=== PATIENT | male | born 1975 | race Caucasian/White ===

== ENCOUNTER 2016-09-16 16:11 | Emergency (ER) | payer SELFPAY ==
[2016-09-16] MEDS ORDERED: Eye-Stream Solution ONE (16:35)
[2016-09-16] MEDS ORDERED: Fluor-I-Strip/Ful-Flo OP ONE ×2 (16:35→16:55)
[2016-09-16] MEDS ORDERED: TETRACAINE 0.5% STERI-UNIT SOL OP ONE (16:35)
[2016-09-16] MEDS ORDERED: Eye-Stream Solution OP ONE (16:55)
[2016-09-16] MEDS ORDERED: Erythromycin 3.5 GM OPHTH. OP ONE (16:56)
[2016-09-16] MEDS ORDERED: TETRACAINE 0.5% STERI-UNIT SOL OP STA (16:57)
[2016-09-16] MEDS ORDERED: Erythromycin 1 GM ONE (17:00)
[2016-09-16 17:15] VITALS: BP 111/74; PULSE 77
[2016-09-16 17:18] VITALS: O2SAT 98
--- NOTE | 2016-09-16 17:19 | ERPHSYRPT ---
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 STATES HE SUSTAINED POSSIBLE FOREIGN BODY TO HIS RIGHT WORKING BELOW CAR 1 WEEK AGO, AND STATES HIS RIGHT EYE LASHES HAVE BEEN MATTED X 1 WEEK. HE DENIES EYE PAIN, EYE IRRITATION OR TEARING. Timing/Duration: day(s) Location: right eye Severity: mild Apparent Injury: possibly Associated Symptoms: redness, foreign body sensation Visual Assistive Devices: None Chemical Exposure: No Trauma: No Welding Arc/Tanning Bed Exposure: No Allergies/Adverse Reactions: Shellfish *RETIRED-10/21/12 [Shellfish] Allergy (Intermediate, Verified 16:22) Home Medications: Albuterol Sulfate [Proventil Hfa] 6.7 gm IH Q4-6HPRN PRN 09/16/16 [History] Hx Tetanus, Diphtheria Vaccination/Date Given: No Hx Influenza Vaccination/Date Given: No Hx Pneumococcal Vaccination/Date Given: No Immunizations Up to Date: Yes - Review of Systems Constitutional: No Fever, No Chills Eyes: Itchy Ears, Nose, & Throat: No Symptoms Respiratory: No Symptoms, No Cough, No Dyspnea Cardiac: No Symptoms, No Chest Pain, No Edema, No Syncope Abdominal/Gastrointestinal: No Abdominal Pain, No Nausea, No Vomiting, No Diarrhea Genitourinary Symptoms: No Dysuria Musculoskeletal: No Back Pain, No Neck Pain Skin: No Rash Neurological: No Dizziness, No Focal Weakness, No Sensory Changes Psychological: No Symptoms Endocrine: No Symptoms All Other Systems: Reviewed and Negative - Past Medical History Pertinent Past Medical History: Yes Neurological History: No Pertinent History ENT History: No Pertinent History Cardiac History: No Pertinent History Respiratory History: Asthma Endocrine Medical History: No Pertinent History Musculoskeletal History: No Pertinent History GI Medical History: No Pertinent History History: No Pertinent History Psycho-Social History: No Pertinent History Male Reproductive Disorders: No Pertinent History - Past Surgical History Past Surgical History: No Neuro Surgical History: No Pertinent History Cardiac: No Pertinent History Respiratory: No Pertinent History Gastrointestinal: No Pertinent History Genitourinary: No Pertinent History Musculoskeletal: No Pertinent History Male Surgical History: No Pertinent History - Social History Smoking Status: Never smoker Exposure to second hand smoke: No Drug Use: none Patient Lives Alone: No - Nursing Vital Signs Nursing Vital Signs: Initial Vital Signs Temperature 98.3 F Temperature Source Oral Pulse Rate 83 Respiratory Rate 22 Pain Intensity 2 - Physical Exam General Appearance: no apparent distress Vision Acuity Degree Evaluation Phase: Uncorrected Vision Acuity Right Eye: 20/20 Vision Acuity Left Eye: 20/20 Eye Exam: right eye: conjunctival inflammation (CHEMOSIS 5MM X 5MM), other, bilateral eye: PERRL, EOMI Ears, Nose, Throat Exam: normal ENT inspection Neck Exam: normal inspection Respiratory Exam: normal breath sounds Cardiovascular Exam: regular rate/rhythm SpO2: 98 Oxygen Delivery: Room Air Ordered Tests: Active Orders 24 hr Category Date Time Status Visual Acuity STAT Care 09/16/16 16:55 Active Medication Summary Discontinued Medications Generic Name Dose Route Start Last Admin Trade Name Freq PRN Reason Stop Dose Admin Erythromycin 3.5 gm 09/16/16 16:56 09/16/16 17:04 Erythromycin 3.5 Gm Ophth. OP 09/16/16 16:57 3.5 gm STAT ONE Administration Erythromycin Confirm 09/16/16 17:00 Erythromycin 1 Gm Administered 09/16/16 17:01 Dose 1 gm .ROUTE .STK-MED ONE Eye Irrigation Solution Confirm 09/16/16 16:35 Eye-Stream Solution Administered 09/16/16 16:36 Dose 30 ml .ROUTE .STK-MED ONE Eye Irrigation Solution 15 ml 09/16/16 16:55 09/16/16 16:59 Eye-Stream Solution OP 09/16/16 16:56 15 ml STAT ONE Administration Fluorescein Sodium Confirm 09/16/16 16:35 Gfsie-H-Gwjrs/Ful-Ned Administered 09/16/16 16:36 Dose 1 mg OP .STK-MED ONE Fluorescein Sodium 1 mg 09/16/16 16:55 09/16/16 16:59 Wtozz-U-Uwjsp/Ful-Ned OP 09/16/16 16:56 1 mg STAT ONE Administration Tetracaine HCl Confirm 09/16/16 16:35 Tetracaine 0.5% Steri-Unit Armida Administered 09/16/16 16:36 Dose 4 ml OP .STK-MED ONE Tetracaine HCl 4 ml 09/16/16 16:57 09/16/16 16:59 Tetracaine 0.5% Steri-Unit Armida OP 09/16/16 16:58 4 ml STAT STA Administration - Progress Progress Note: 09/16/16 17:20 TETRCAINE OPHTH 3GTTS OD, EVERSION UPPER EYE LID WITH COTTON SWAB, NO EVIDENCE OF FOREIGH BODY,FLURO STRIP- NEG, EYE IRRIGATION, APPLICATION 1/2" RIBBON ERYTHROMYCIN OPHTHALMIC OINTMENT Counseled pt/family regarding: diagnosis, need for follow-up - Departure Time of Disposition: 17:30 Departure Disposition: Home Clinical Impression: CORNEAL ABRASION RIGHT EYE, CONJUNCTIVITIS RIGHT EYE Condition: Stable Critical Care Time: No Additional Instructions: CONSULT DR LYLES EYE PHYSICIAN, CALL OFFICE TOMORROW FOR APPOINTMENT. APPLY ERYTHROMYCIN OPHTHALMIC OINTMENT INTO RIGHT EYE 4 TIMES DAILY FOR 7 DAYS. TYLENOL #3 EVERY 4 HOURS FOR PAIN NEEDED. CLEANSE HANDS BEFORE AND AFTER APPLICATION OF ANTIBIOTIC OINTMENT. Prescriptions: Codeine Phosphate/APAP #3 [Tylenol #3 Tablet] 1 tab PO Q4HPRN PRN #12 tablet PRN Reason: Pain Erythromycin Base 3.5 gm [Erythromycin 3.5 GM OPHTH.] 3.5 gm OP QID #2 tube
== END 2016-09-16 17:39 | disposition home or self-care (01) ==
LOC: ED 16:11
DX: S05.01XA Injury of conjunctiva and corneal abrasion without foreign body, right eye, initial encounter (principal); H10.89 Other conjunctivitis
CPT/HCPCS: 99283; A9270-GY

== ENCOUNTER 2018-02-12 10:01 | Emergency (ER) | payer SELFPAY ==
[2018-02-12 10:10] VITALS: O2SAT 98
--- NOTE | 2018-02-12 10:20 | ERPHSYRPT ---
- History of Present Illness Time Seen by Provider: 02/12/18 10:18 Source: patient, family Exam Limitations: no limitations Patient Subjective Stated Complaint: Pt states "I cut my finger with a razor." Triage Nursing Assessment: Pt alert and oriented X 3, skin pwd. PT ambulates with an upright steady gait, able to speak in clear full sentences. Pt has approx 1 cm laceration noted to the tip of the left middle finger, slightly going through the nail. 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 he tetanus is utd. Timing/Duration: today Quality: painful Severity: mild Location: hands (left middle finger) Possible Causes: other (accidental cut with a steam box operator.) Associated Symptoms: denies symptoms Allergies/Adverse Reactions: Shellfish *RETIRED-10/21/12 [Shellfish] Allergy (Intermediate, Verified 16:22) Home Medications: Esomeprazole Magnesium [Nexium] 20 mg PO DAILY 02/12/18 [History] Loratadine [Claritin] 10 mg PO DAILY 02/12/18 [History] Hx Tetanus, Diphtheria Vaccination/Date Given: Yes Hx Influenza Vaccination/Date Given: No Hx Pneumococcal Vaccination/Date Given: No Immunizations Up to Date: Yes - Review of Systems Constitutional: No Symptoms Eyes: No Symptoms Ears, Nose, & Throat: No Symptoms Respiratory: No Symptoms Cardiac: No Symptoms Abdominal/Gastrointestinal: No Symptoms Genitourinary Symptoms: No Symptoms Musculoskeletal: No Symptoms Skin: Other (laceration to left middle fingertip) Neurological: No Symptoms, No Dizziness Psychological: No Symptoms, No Alcohol Abuse, No Drug Abuse, No Anxiety Endocrine: No Symptoms, No Polyuria, No Polydipsia Hematologic/Lymphatic: No Symptoms Immunological/Allergic: No Symptoms All Other Systems: Reviewed and Negative - Past Medical History Pertinent Past Medical History: Yes Neurological History: No Pertinent History ENT History: No Pertinent History Cardiac History: No Pertinent History Respiratory History: Asthma Endocrine Medical History: No Pertinent History Musculoskeletal History: No Pertinent History GI Medical History: No Pertinent History History: No Pertinent History Psycho-Social History: No Pertinent History Male Reproductive Disorders: No Pertinent History - Past Surgical History Past Surgical History: No Neuro Surgical History: No Pertinent History Cardiac: No Pertinent History Respiratory: No Pertinent History Gastrointestinal: No Pertinent History Genitourinary: No Pertinent History Musculoskeletal: No Pertinent History Male Surgical History: No Pertinent History - Social History Smoking Status: Former smoker Exposure to second hand smoke: No Drug Use: none Patient Lives Alone: No - Nursing Vital Signs Nursing Vital Signs: Initial Vital Signs Temperature 98.0 F 02/12/18 10:05 Pulse Rate 78 02/12/18 10:05 Respiratory Rate 18 02/12/18 10:05 Blood Pressure 159/100 02/12/18 10:05 O2 Sat by Pulse Oximetry 98 02/12/18 10:05 Pain Scale Pain Intensity 5 - Physical Exam General Appearance: no apparent distress, alert Eye Exam: PERRL/EOMI, eyes nml inspection Ears, Nose, Throat Exam: normal ENT inspection Neck Exam: normal inspection, non-tender, supple, full range of motion, No meningismus Respiratory Exam: normal breath sounds, lungs clear, airway intact, rhonchi, wheezing, No chest tenderness, No respiratory distress Cardiovascular Exam: regular rate/rhythm, normal heart sounds, normal peripheral pulses Gastrointestinal/Abdomen Exam: soft, normal bowel sounds, No tenderness, No guarding, No rebound Rectal Exam: not done Back Exam: normal inspection, normal range of motion Extremity Exam: normal inspection, normal range of motion, lacerations (1cm superficial flap lac with tip of fingernail laceration) Neurologic Exam: alert, oriented x 3, cooperative, instructional support technician II-XII nml as tested, normal mood/affect Skin Exam: normal color, warm, dry, laceration Lymphatic Exam: No adenopathy SpO2 Interpretation: normal SpO2: 98 Oxygen Delivery: Room Air Procedures - Laceration/Wound Repair Left Finger Wound Location: Left (middle finger tip) Wound Length (cm): 1 Wound's Depth, Shape: superficial, flap Wound Explored: clean Irrigated: No Hibiclens Prep: Yes Wound Debrided: minimal Wound Repaired With: Steri-strips, Dermabond Sterile Dressing Applied?: Yes Progress: 02/12/18 11:31 area of left middle finger soaked in hibiclens solution. area of laceration dried. tip of lacerated fingernail debrided sharply. benzoin, dermabond and 1/2 " steristrips applied. pressure dressing applied by RN. marcus ross. no complications - Course Nursing assessment & vital signs reviewed: Yes Ordered Tests: Active Orders 24 hr Category Date Time Status Wound Care STAT Care 02/12/18 11:21 Ordered - Progress Progress: improved Counseled pt/family regarding: diagnosis, need for follow-up - Departure Time of Disposition: 11:34 Departure Disposition: Home Clinical Impression: Laceration of finger Condition: Stable Critical Care Time: No Referrals: CHAD MEHTA MD [Primary Care Provider] - Additional Instructions: Keep current dressing in place until Friday. Friday may remove top bandage, wash and leave steristrips in place until they fall off.
[2018-02-12 11:48] VITALS: BP 148/99; PULSE 72
== END 2018-02-12 11:48 | disposition home or self-care (01) ==
LOC: ED 10:01
PROC: 0HQGXZZ Repair Left Hand Skin, External Approach (ICD-10-PCS; principal; 2018-02-12)
DX: S61.213A Laceration without foreign body of left middle finger without damage to nail, initial encounter (principal); W26.0XXA Contact with knife, initial encounter
CPT/HCPCS: 12001; 99283

== ENCOUNTER 2020-02-24 17:08 | Observation (INO) | payer BC ==
[2020-02-24] MEDS ORDERED: Sodium Chloride 0.9% 1000 ML 1,000 ML IV STA (17:48)
--- NOTE | 2020-02-24 17:55 | ERPHSYRPT ---
- History of Present Illness Time Seen by Provider: 02/24/20 18:00 Historian: patient Physician History: Patient is a 44-year-old male who presents to our ED with complaints of progressive right lower quadrant/periumbilical pain. Pain started yesterday. Pain described as a dull ache. Pain appears to be localized. No radiation. Patient admits to diarrhea. No nausea or vomiting. No testicular pain. No trauma. No fever. No chest pain or shortness of breath. Symptoms are mild to moderate in intensity. No specific worsening or improving factors. Patient states he is otherwise healthy. Patient voices no other complaints at this time. Patient declined pain medication. Timing/Duration: yesterday Activities at Onset: none Quality: aching Abdominal Pain Onset Location: RLQ, periumbilical Pain Radiation: no radiation Severity of Pain-Max: moderate Severity of Pain-Current: mild Modifying Factors: Improves With: palpation Associated Symptoms: diarrhea, No chest pain, No diaphoresis, No fever/chills, No fatigue, No headache, No heartburn, No loss of appetite, No nausea, No neck pain, No rash, No shortness of breath, No syncope, No testicular pain, No vomiting, No weakness Previous symptoms: no prior history Allergies/Adverse Reactions: Shellfish *RETIRED-10/21/12 [Shellfish] Allergy (Intermediate, Verified 09/16/16 16:22) Home Medications: Esomeprazole Magnesium [Nexium] 20 mg PO DAILY 02/12/18 [History] Loratadine [Claritin] 10 mg PO DAILY 02/12/18 [History] Albuterol 17 gm IH DAILY 02/24/20 [History] Fluticasone/Salmeterol [Advair 100-50 Diskus] 1 unit IH DAILY 02/24/20 [History] Meloxicam [Mobic] 15 mg PO DAILY 02/24/20 [History] Hx Tetanus, Diphtheria Vaccination/Date Given: Yes Hx Influenza Vaccination/Date Given: No Hx Pneumococcal Vaccination/Date Given: No - Review of Systems Constitutional: No Symptoms, No Fever, No Chills Eyes: No Symptoms Ears, Nose, & Throat: No Symptoms Respiratory: No Symptoms, No Cough, No Dyspnea Cardiac: No Symptoms, No Chest Pain, No Edema, No Syncope Abdominal/Gastrointestinal: No Symptoms, No Abdominal Pain, No Nausea, No Vomiting, No Diarrhea Genitourinary Symptoms: No Symptoms, No Dysuria Musculoskeletal: No Symptoms, No Back Pain, No Neck Pain Skin: No Symptoms, No Rash Neurological: No Symptoms, No Dizziness, No Focal Weakness, No Sensory Changes Psychological: No Symptoms Endocrine: No Symptoms Hematologic/Lymphatic: No Symptoms Immunological/Allergic: No Symptoms All Other Systems: Reviewed and Negative - Past Medical History Pertinent Past Medical History: Yes Neurological History: No Pertinent History ENT History: No Pertinent History Cardiac History: No Pertinent History Respiratory History: Asthma Endocrine Medical History: No Pertinent History Musculoskeletal History: No Pertinent History GI Medical History: No Pertinent History History: No Pertinent History Psycho-Social History: No Pertinent History Male Reproductive Disorders: No Pertinent History - Past Surgical History Past Surgical History: No Neuro Surgical History: No Pertinent History Cardiac: No Pertinent History Respiratory: No Pertinent History Gastrointestinal: No Pertinent History Genitourinary: No Pertinent History Musculoskeletal: No Pertinent History Male Surgical History: No Pertinent History - Social History Smoking Status: Former smoker Exposure to second hand smoke: No Drug Use: none Patient Lives Alone: No - Nursing Vital Signs Nursing Vital Signs: Initial Vital Signs Temperature 98.5 F 02/24/20 17:55 Pulse Rate 93 H 02/24/20 17:55 Respiratory Rate 20 02/24/20 17:55 Blood Pressure 157/92 02/24/20 17:55 O2 Sat by Pulse Oximetry 95 02/24/20 17:55 Pain Scale Pain Intensity 9 - Physical Exam General Appearance: no apparent distress, alert Eye Exam: PERRL/EOMI, eyes nml inspection Ears, Nose, Throat Exam: normal ENT inspection, pharynx normal, moist mucous membranes Neck Exam: normal inspection, non-tender, supple, full range of motion Respiratory Exam: normal breath sounds, lungs clear, No respiratory distress Cardiovascular Exam: regular rate/rhythm, normal heart sounds Gastrointestinal/Abdomen Exam: soft, tenderness, guarding, other (Tenderness to palpation to right lower quadrant at McBurney's point. Overlying soft tissue intact. No signs of trauma.), No mass Back Exam: normal inspection, normal range of motion, No CVA tenderness, No vertebral tenderness Extremity Exam: normal inspection, normal range of motion, pelvis stable Neurologic Exam: alert, oriented x 3, cooperative, normal mood/affect, nml cerebellar function, sensation nml, No motor deficits Skin Exam: normal color, warm, dry Lymphatic Exam: No adenopathy SpO2 Interpretation: normal SpO2: 98 O2 Delivery: Room Air - Course Nursing assessment & vital signs reviewed: Yes - CT Exams Abdomen/Pelvis CT Interpretation: Tele-radiologist Report (Scattered diverticulosis sigmoid diverticulitis, small hiatal hernia, hepatomegaly, splenomegaly) Ordered Tests: Active Orders 24 hr Category Date Time Status EKG-ER Only STAT Care 02/24/20 17:48 Active IV Insertion STAT Care 02/24/20 17:48 Active ABDOMEN AND PELVIS W CONTRAST [CT] Stat Exams 02/24/20 17:49 Taken CBC W DIFF Stat Lab 02/24/20 18:00 Completed CMP Stat Lab 02/24/20 18:00 Completed LIPASE Stat Lab 02/24/20 18:00 Completed Transfer Order Routine Transfer 02/24/20 Ordered Medication Summary Generic Name Dose Route Start Last Admin Trade Name Freq PRN Reason Stop Dose Admin Piperacillin Sod/Tazobactam 100 mls @ 200 mls/hr 02/24/20 20:35 02/24/20 20:46 Sod 3.375 gm/ Sodium Chloride IV 02/24/20 21:04 200 mls/hr STAT ONE Administration Discontinued Medications Generic Name Dose Route Start Last Admin Trade Name Freq PRN Reason Stop Dose Admin Sodium Chloride 1,000 mls @ 999 mls/hr 02/24/20 17:48 02/24/20 19:42 Sodium Chloride 0.9% 1000 Ml IV 02/24/20 18:48 Infused .Q1H1M STA Infusion Sodium Chloride Confirm 02/24/20 18:34 Sodium Chloride 0.9% 1000 Ml Administered 02/24/20 18:35 Dose 1,000 mls @ ud .ROUTE .STK-MED ONE Sodium Chloride Confirm 02/24/20 20:39 Sodium Chloride 0.9% 100 Ml Ivpb Administered 02/24/20 20:40 Dose 100 mls @ ud IV .STK-MED ONE Morphine Sulfate 4 mg 02/24/20 20:37 02/24/20 20:47 Morphine Sulfate 4 Mg Inj IV 02/24/20 20:38 4 mg STAT ONE Administration Morphine Sulfate Confirm 02/24/20 20:39 Morphine Sulfate 4 Mg Inj Administered 02/24/20 20:40 Dose 4 mg .ROUTE .STK-MED ONE Piperacillin Sod/Tazobactam Sod Confirm 02/24/20 20:39 Zosyn 3.375 Gm Vial Administered 02/24/20 20:40 Dose 3.375 gm IV .STK-MED ONE Lab/Rad Data: Laboratory Result Diagrams 02/24/20 18:00 02/24/20 18:00 Laboratory Results 02/24/20 02/24/20 Range/Units 18:00 18:00 WBC 13.0 H (4.0-10.5) K/mm3 RBC 4.92 (4.1-5.6) M/mm3 Hgb 14.7 (12.5-18.0) gm/dl Hct 44.2 (42-50) % MCV 89.8 (78-100) fl MCH 29.9 (26-32) pg MCHC 33.3 (32-36) g/dl RDW 12.7 (11.5-14.0) % Plt Count 258 (150-450) K/mm3 MPV 10.6 (7.5-11.0) fl Gran % 73.2 H (36.0-66.0) % Eos # (Auto) 0.52 H (0-0.5) Absolute Lymphs (auto) 1.84 (1.0-4.6) Absolute Monos (auto) 1.09 (0.0-1.3) Lymphocytes % 14.2 L (24.0-44.0) % Monocytes % 8.4 (0.0-12.0) % Eosinophils % 4.0 (0.00-5.0) % Basophils % 0.2 (0.0-0.4) % Absolute Granulocytes 9.52 H (1.4-6.9) Basophils # 0.03 (0-0.4) Sodium 137 (137-145) mmol/L Potassium 4.1 (3.5-5.1) mmol/L Chloride 105 (98-107) mmol/L Carbon Dioxide 26 (22-30) mmol/L Anion Gap 10.5 (5-15) MEQ/L BUN 15 (9-20) mg/dL Creatinine 0.76 (0.66-1.25) mg/dL Estimated GFR > 60.0 ML/MIN Glucose 99 (74-106) mg/dL Calcium 9.5 (8.4-10.2) mg/dL Total Bilirubin 0.70 (0.2-1.3) mg/dL AST 27 (17-59) U/L ALT 26 (0-50) U/L Alkaline Phosphatase 66 (38-126) U/L Serum Total Protein 7.6 (6.3-8.2) g/dL Albumin 4.4 (3.5-5.0) g/dL Lipase 118 (23-300) U/L - Progress Progress: improved Progress Note: 02/24/20 20:51 Patient reassessed. Pain improved. Patient requested Toradol for pain control. He declined morphine as this apparently causes prolonged sleeping and difficulty awakening. CT shows diverticulitis of sigmoid colon. We will change patient's diet to clear liquid only. Antibiotics infused. Case discussed with Dr. Schofield who accepts admission to observation. Plan of care discussed with patient. He agrees to admission to [facility] for further evaluation and treatment. Discussed with : Ivan Will see patient in: hospital (observation) Counseled pt/family regarding: lab results, diagnosis, need for follow-up, rad results - Departure Departure Disposition: Observation Clinical Impression: Diverticulitis, Hiatal hernia, Hepatomegaly, Splenomegaly Condition: Stable Critical Care Time: No Referrals: CHAD MEHTA MD [ACTIVE STAFF] -
[2020-02-24 18:26] LABS: Absolute Neutrophil Ct (ANC) 9.52 (1.4-6.9); BASOPHIL % 0.2 % (0.0-0.4); Basophil (Absolute #) 0.03 (0-0.4); Eosinophil (Absolute #) 0.52 (0-0.5); Hematocrit 44.2 % (42-50); Hemoglobin 14.7 gm/dl (12.5-18.0); Lymphocyte (Absolute #) 1.84 (1.0-4.6); Lymphocytes % 14.2 % (24.0-44.0); Mean Cell Volume 89.8 fl (78-100); Mean Corpuscular Hemoglobin 29.9 pg (26-32); Mean Corpuscular Hgb Concent. 33.3 g/dl (32-36); Mean Platelet Volume 10.6 fl (7.5-11.0); Monocyte (Absolute #) 1.09 (0.0-1.3); Monocytes % 8.4 % (0.0-12.0); Neutrophil % 73.2 % (36.0-66.0); Platelet Count 258 K/mm3 (150-450); Red Blood Count 4.92 M/mm3 (4.1-5.6); Red Cell Distribution Width 12.7 % (11.5-14.0)
[2020-02-24] MEDS ORDERED: Sodium Chloride 0.9% 1000 ML 1,000 ML ONE (18:34)
[2020-02-24 18:40] LABS: ALBUMIN 4.4 g/dL (3.5-5.0); ALKALINE PHOSPHATASE 66 U/L (38-126); ANION GAP 10.5 MEQ/L (5-15); BLOOD UREA NITROGEN 15 mg/dL (9-20); CHLORIDE 105 mmol/L (98-107); Calcium 9.5 mg/dL (8.4-10.2); Carbon Dioxide 26 mmol/L (22-30); Creatinine 1 0.76 mg/dL (0.66-1.25); EST GLOMERULAR FILTRATION RATE > 60.0 ML/MIN; Glucose 99 mg/dL (74-106); LIPASE 118 U/L (23-300); Potassium 4.1 mmol/L (3.5-5.1); SGOT/AST 27 U/L (17-59); SGPT/ALT 26 U/L (0-50); SODIUM 137 mmol/L (137-145); Total Protein 7.6 g/dL (6.3-8.2)
[2020-02-24] MEDS ORDERED: Zosyn 3.375 GM Vial 3.375 GM in Sodium Chloride 100ML MINI-BAG PLUS 100 ML IV ONE (20:35)
[2020-02-24] MEDS ORDERED: MORPHINE SULFATE 4 MG INJ IV ONE (20:37)
[2020-02-24] MEDS ORDERED: Sodium Chloride 0.9% 100 ML IVPB 100 ML IV ONE (20:39)
[2020-02-24] MEDS ORDERED: MORPHINE SULFATE 4 MG INJ ONE (20:39)
[2020-02-24] MEDS ORDERED: Zosyn 3.375 GM Vial IV ONE (20:39)
[2020-02-24] MEDS ORDERED: TORAdol 30 mg Injection IV ONE (20:57)
[2020-02-24] MEDS ORDERED: TORAdol 30 mg Injection ONE (20:58)
[2020-02-24] MEDS ORDERED: MORPHINE SULFATE 4 MG INJ IV PRN (21:20)
[2020-02-24] MEDS ORDERED: Zofran 4 MG/2 ML VIAL IV PRN (21:20)
[2020-02-24] MEDS: Sodium Chloride 0.9% 1000 ML 1,000 ML IV SCH (22:15)
[2020-02-24] MEDS ORDERED: Protonix 20MG Tablet PO ONE (22:21)
[2020-02-24] MEDS ORDERED: MELOXICAM PO ONE (22:21)
[2020-02-24] MEDS ORDERED: CLARITIN 10 MG ONE (22:21)
[2020-02-24] MEDS: CLARITIN 10 MG PO SCH (22:24)
[2020-02-24] MEDS: Protonix 20MG Tablet PO SCH (22:25)
[2020-02-25] MEDS: TORAdol 30 mg Injection IV PRN ×2 (05:26→18:07)
[2020-02-25 05:47] LABS: Absolute Neutrophil Ct (ANC) 6.22 (1.4-6.9); BASOPHIL % 0.3 % (0.0-0.4); Basophil (Absolute #) 0.03 (0-0.4); Hematocrit 42.6 % (42-50); Hemoglobin 13.9 gm/dl (12.5-18.0); Lymphocyte (Absolute #) 2.22 (1.0-4.6); Mean Cell Volume 90.4 fl (78-100); Mean Corpuscular Hemoglobin 29.5 pg (26-32); Mean Corpuscular Hgb Concent. 32.6 g/dl (32-36); Mean Platelet Volume 10.4 fl (7.5-11.0); Monocyte (Absolute #) 1.11 (0.0-1.3); Neutrophil % 61.7 % (36.0-66.0); Platelet Count 214 K/mm3 (150-450); Red Blood Count 4.71 M/mm3 (4.1-5.6); Red Cell Distribution Width 12.7 % (11.5-14.0); White Blood Count 10.1 K/mm3 (4.0-10.5)
[2020-02-25 06:10] LABS: ALBUMIN 3.8 g/dL (3.5-5.0); ALKALINE PHOSPHATASE 56 U/L (38-126); ANION GAP 8.2 MEQ/L (5-15); BLOOD UREA NITROGEN 12 mg/dL (9-20); CHLORIDE 106 mmol/L (98-107); Calcium 9.1 mg/dL (8.4-10.2); Carbon Dioxide 27 mmol/L (22-30); Creatinine 1 0.82 mg/dL (0.66-1.25); EST GLOMERULAR FILTRATION RATE > 60.0 ML/MIN; Glucose 101 mg/dL (74-106); Potassium 4.1 mmol/L (3.5-5.1); SGOT/AST 24 U/L (17-59); SGPT/ALT 22 U/L (0-50); SODIUM 137 mmol/L (137-145); Total Protein 6.7 g/dL (6.3-8.2)
[2020-02-25] MEDS: Sodium Chloride 0.9% 1000 ML 1,000 ML IV SCH ×2 (08:24→23:25)
--- NOTE | 2020-02-25 08:35 | PCM.HP ---
History of Present Illness - Chief Complaint Chief Complaint: Diverticulitis Date: 02/25/20 History of Present Illness: is a 44 year old male. Presented to ER with worsening of mid abdominal pain since day before yesterday, pt. notes pain under control only by iv pain medication at this time. - Review of Systems Constitutional: No Fever, No Chills Eyes: No Symptoms Ears, Nose, & Throat: No Symptoms Respiratory: No Cough, No Short Of Breath Cardiac: No Chest Pain, No Edema, No Syncope Abdominal/Gastrointestinal: Abdominal Pain, No Nausea, No Vomiting, No Diarrhea Genitourinary Symptoms: No Dysuria Musculoskeletal: No Back Pain, No Neck Pain Skin: No Rash Neurological: No Dizziness, No Focal Weakness, No Sensory Changes Psychological: No Symptoms Endocrine: No Symptoms Hematologic/Lymphatic: No Symptoms Immunological/Allergic: No Symptoms Medications & Allergies Home Medications: Home Medication List Esomeprazole Magnesium [Nexium] 20 mg PO HS 02/12/18 [History Confirmed 02/24/20] Loratadine [Claritin] 10 mg PO HS 02/12/18 [History Confirmed 02/24/20] Albuterol 17 gm IH DAILY 02/24/20 [History Confirmed 02/24/20] Fluticasone/Salmeterol [Advair 100-50 Diskus] 1 unit IH DAILY 02/24/20 [History Confirmed 02/24/20] Meloxicam [Mobic] 15 mg PO HS 02/24/20 [History Confirmed 02/24/20] Allergies/Adverse Reactions: Allergies Allergy/AdvReac Type Severity Reaction Status Date / Time Shellfish *RETIRED-10/21/12 Allergy Intermediate Verified 09/16/16 16:22 [Shellfish] morphine AdvReac Intermediate Verified 02/24/20 20:53 - Past Medical History Past Medical History: Yes Neurological History: No Pertinent History ENT History: No Pertinent History Cardiac History: No Pertinent History Respiratory History: Asthma Endocrine Medical History: No Pertinent History Musculoskelatal History: No Pertinent History GI Medical History: No Pertinent History History: No Pertinent History Pyscho-Social History: No Pertinent History Male Reproductive Disorders: No Pertinent History - Past Surgical History Past Surgical History: No Neuro Surgical History: No Pertinent History Cardiac History: No Pertinent History Respiratory Surgery: No Pertinent History GI Surgical History: No Pertinent History Genitourinary Surgical Hx: No Pertinent History Musculskeletal Surgical Hx: No Pertinent History Male Surgical History: No Pertinent History - Social History Smoking Status: Former smoker Exposure to second hand smoke: No Alcohol: Occasionally Drug Use: none - Physical Exam Vital Signs: Vital Signs - 24 hr Temp Pulse Resp BP Pulse Ox 02/25/20 06:59 98.1 F 73 20 113/64 95 02/25/20 04:00 98.4 F 76 18 130/79 96 02/25/20 00:11 74 18 94 L 02/24/20 21:30 98.9 F 88 16 136/85 98 02/24/20 21:20 88 16 97 02/24/20 21:10 89 134/84 97 02/24/20 20:54 98 02/24/20 20:00 84 18 131/78 97 02/24/20 19:17 84 18 118/71 97 02/24/20 18:49 87 20 97 02/24/20 17:55 98.5 F 93 H 20 157/92 95 General Appearance: no apparent distress, alert Neurologic Exam: alert, oriented x 3, cooperative, normal mood/affect, nml cerebellar function, nml station & gait, sensation nml, No motor deficits Eye Exam: PERRL/EOMI, eyes nml inspection Ears, Nose, Throat Exam: normal ENT inspection, TMs normal, pharynx normal, moist mucous membranes Neck Exam: normal inspection, non-tender, supple, full range of motion Respiratory Exam: normal breath sounds, lungs clear, No respiratory distress Cardiovascular Exam: regular rate/rhythm, normal heart sounds, normal peripheral pulses Gastrointestinal/Abdomen Exam: soft, normal bowel sounds, tenderness (midline abdomen), No mass Back Exam: normal inspection, normal range of motion, No CVA tenderness, No ve rtebral tenderness Extremity Exam: normal inspection, normal range of motion, pelvis stable Skin Exam: normal color, warm, dry, No rash Lymphatic Exam: No adenopathy Results - Labs Lab/Micro Results: Lab Results-Last 24 Hours 02/24/20 02/24/20 02/25/20 Range/Units 18:00 18:00 05:39 WBC 13.0 H 10.1 (4.0-10.5) K/mm3 RBC 4.92 4.71 (4.1-5.6) M/mm3 Hgb 14.7 13.9 (12.5-18.0) gm/dl Hct 44.2 42.6 (42-50) % MCV 89.8 90.4 (78-100) fl MCH 29.9 29.5 (26-32) pg MCHC 33.3 32.6 (32-36) g/dl RDW 12.7 12.7 (11.5-14.0) % Plt Count 258 214 (150-450) K/mm3 MPV 10.6 10.4 (7.5-11.0) fl Gran % 73.2 H 61.7 (36.0-66.0) % Eos # (Auto) 0.52 H 0.50 (0-0.5) Absolute Lymphs (auto) 1.84 2.22 (1.0-4.6) Absolute Monos (auto) 1.09 1.11 (0.0-1.3) Lymphocytes % 14.2 L 22.0 L (24.0-44.0) % Monocytes % 8.4 11.0 (0.0-12.0) % Eosinophils % 4.0 5.0 (0.00-5.0) % Basophils % 0.2 0.3 (0.0-0.4) % Absolute Granulocytes 9.52 H 6.22 (1.4-6.9) Basophils # 0.03 0.03 (0-0.4) Sodium 137 (137-145) mmol/L Potassium 4.1 (3.5-5.1) mmol/L Chloride 105 (98-107) mmol/L Carbon Dioxide 26 (22-30) mmol/L Anion Gap 10.5 (5-15) MEQ/L BUN 15 (9-20) mg/dL Creatinine 0.76 (0.66-1.25) mg/dL Estimated GFR > 60.0 ML/MIN Glucose 99 (74-106) mg/dL Calcium 9.5 (8.4-10.2) mg/dL Total Bilirubin 0.70 (0.2-1.3) mg/dL AST 27 (17-59) U/L ALT 26 (0-50) U/L Alkaline Phosphatase 66 (38-126) U/L Serum Total Protein 7.6 (6.3-8.2) g/dL Albumin 4.4 (3.5-5.0) g/dL Lipase 118 (23-300) U/L 02/25/20 Range/Units 05:39 WBC (4.0-10.5) K/mm3 RBC (4.1-5.6) M/mm3 Hgb (12.5-18.0) gm/dl Hct (42-50) % MCV (78-100) fl MCH (26-32) pg MCHC (32-36) g/dl RDW (11.5-14.0) % Plt Count (150-450) K/mm3 MPV (7.5-11.0) fl Gran % (36.0-66.0) % Eos # (Auto) (0-0.5) Absolute Lymphs (auto) (1.0-4.6) Absolute Monos (auto) (0.0-1.3) Lymphocytes % (24.0-44.0) % Monocytes % (0.0-12.0) % Eosinophils % (0.00-5.0) % Basophils % (0.0-0.4) % Absolute Granulocytes (1.4-6.9) Basophils # (0-0.4) Sodium 137 (137-145) mmol/L Potassium 4.1 (3.5-5.1) mmol/L Chloride 106 (98-107) mmol/L Carbon Dioxide 27 (22-30) mmol/L Anion Gap 8.2 (5-15) MEQ/L BUN 12 (9-20) mg/dL Creatinine 0.82 (0.66-1.25) mg/dL Estimated GFR > 60.0 ML/MIN Glucose 101 (74-106) mg/dL Calcium 9.1 (8.4-10.2) mg/dL Total Bilirubin 0.90 (0.2-1.3) mg/dL AST 24 (17-59) U/L ALT 22 (0-50) U/L Alkaline Phosphatase 56 (38-126) U/L Serum Total Protein 6.7 (6.3-8.2) g/dL Albumin 3.8 (3.5-5.0) g/dL Lipase (23-300) U/L - Radiology Impressions Radiology Exams & Impressions: Radiology Procedures Category Date Time Status ABDOMEN AND PELVIS W CONTRAST [CT] Stat Exams 02/24/20 17:49 Taken - Other Procedures and Tests Respiratory Therapy 02/24/20 22:23 Respiratory Therapy Assessment DAILY Assessment/Plan (1) Diverticulitis Current Visit: Yes Status: Acute Assessment & Plan: iv antibiotic zosyn and iv pain medication, observe for the day Code(s): K57.92 - DVTRCLI OF INTEST, PART UNSP, W/O PERF OR ABSCESS W/O BLEED
--- NOTE | 2020-02-25 09:32 | XRAY ---
Indication: Abdomen pain and diarrhea. Multiple contiguous axial images obtained through the abdomen and pelvis using 80 cc Isovue 370 contrast only. Comparison: None Lung bases demonstrates minimal lingular subsegmental atelectasis/scarring. No infiltrate or effusion. Heart is not enlarged. Small hiatal hernia. Noncontrasted stomach and bowel loops appear nonobstructed. Normal air-filled appendix. Mild scattered radiopacity throughout the colon presumed ingested medication/bismuth. Also scattered colonic diverticulosis. Mid sigmoid colon demonstrate mild wall thickening with mild pericolonic stranding favoring diverticulitis. No free fluid/air. Liver is enlarged measuring 21.4 cm. Spleen is also enlarged measuring 13.5 cm. Remaining liver, gallbladder, pancreas, spleen, adrenal glands, kidneys, ureters, bladder, and aorta appear unremarkable. No pathologic retroperitoneal lymphadenopathy. Osseous structures intact with mild degenerative changes throughout the spine. Small fatty bilateral inguinal hernias. Impression: 1. Scattered colonic diverticulosis with mild sigmoid diverticulitis. No complications. 2. Incidental small hiatal hernia, hepatosplenomegaly, and small fatty bilateral inguinal hernias.
[2020-02-25] MEDS ORDERED: SALMETEROL IH SCH (10:00)
[2020-02-25] MEDS ORDERED: FLUTICASONE IH SCH (10:00)
[2020-02-25] MEDS ORDERED: NON-FORMULARY ITEM (Albuterol [Albuterol] 17 GM) IH SCH (10:00)
[2020-02-25] MEDS ORDERED: ADVAIR HFA 45/21 COMMON CANISTER IH SCH ×2 (10:00→19:56)
[2020-02-25] MEDS ORDERED: VENTOLIN COMMON CANISTER IH SCH (10:00)
[2020-02-25] MEDS: Zosyn 3.375 GM Vial 3.375 GM in Sodium Chloride 100ML MINI-BAG PLUS 100 ML IV SCH ×3 (10:40→23:34)
[2020-02-25] MEDS: PATIENT OWN MEDICATION IH SCH (19:50)
[2020-02-25] MEDS: CLARITIN 10 MG PO SCH (21:21)
[2020-02-25] MEDS: Protonix 20MG Tablet PO SCH (21:22)
[2020-02-25] MEDS ORDERED: MELOXICAM PO SCH (22:00)
[2020-02-25] MEDS ORDERED: NON-FORMULARY ITEM (Meloxicam [Mobic] 15 MG) PO SCH (22:00)
[2020-02-25] MEDS ORDERED: NON-FORMULARY ITEM PO ONE (22:30)
[2020-02-26 05:39] LABS: Hematocrit 41.3 % (42-50); Hemoglobin 13.4 gm/dl (12.5-18.0); Mean Cell Volume 90.4 fl (78-100); Mean Corpuscular Hemoglobin 29.3 pg (26-32); Mean Corpuscular Hgb Concent. 32.4 g/dl (32-36); Mean Platelet Volume 10.4 fl (7.5-11.0); Platelet Count 223 K/mm3 (150-450); Red Blood Count 4.57 M/mm3 (4.1-5.6); Red Cell Distribution Width 12.5 % (11.5-14.0); White Blood Count 7.2 K/mm3 (4.0-10.5)
[2020-02-26] MEDS: Zosyn 3.375 GM Vial 3.375 GM in Sodium Chloride 100ML MINI-BAG PLUS 100 ML IV SCH ×2 (05:45→10:37)
[2020-02-26 05:54] LABS: ALBUMIN 3.7 g/dL (3.5-5.0); ALKALINE PHOSPHATASE 54 U/L (38-126); ANION GAP 8.5 MEQ/L (5-15); BLOOD UREA NITROGEN 7 mg/dL (9-20); CHLORIDE 109 mmol/L (98-107); Carbon Dioxide 26 mmol/L (22-30); Creatinine 1 0.85 mg/dL (0.66-1.25); EST GLOMERULAR FILTRATION RATE > 60.0 ML/MIN; Glucose 94 mg/dL (74-106); Potassium 3.8 mmol/L (3.5-5.1); SGOT/AST 21 U/L (17-59); SGPT/ALT 20 U/L (0-50); SODIUM 139 mmol/L (137-145); Total Protein 6.8 g/dL (6.3-8.2)
[2020-02-26] MEDS: PATIENT OWN MEDICATION IH SCH (07:25)
[2020-02-26] MEDS: Sodium Chloride 0.9% 1000 ML 1,000 ML IV SCH (10:41)
--- NOTE | 2020-02-26 11:53 | PCM.DS ---
Discharge Summary Date of Admission: 02/24/20 21:14 Admitting Physician: DENNIS MCIHAUD Primary Care Provider: RAFFAELE LEAVITT NP Allergies Allergies Shellfish *RETIRED-10/21/12 [Shellfish] Allergy (Intermediate, Verified 09/16/16 16:22) morphine Adverse Reaction (Intermediate, Verified 02/24/20 20:53) Trouble waking up Hospital Summary - Hospital Course Hospital Course: Chief Complaint Diagnosis Diverticulitis Admission Date Date 02/25/20 Allergies Allergy/AdvReac Type Severity Reaction Status Date / Time Shellfish *RETIRED-10/21/12 Allergy Intermediate Verified 09/16/16 16:22 [Shellfish] morphine AdvReac Intermediate Verified 02/24/20 20:53 Vital Signs (Last 24 hours) Temp Pulse Resp BP Pulse Ox 02/26/20 08:00 97.8 F 59 L 15 134/86 97 02/26/20 07:26 78 18 97 02/26/20 04:00 98.1 F 81 18 137/65 96 02/25/20 23:37 98.8 F 74 18 128/73 95 02/25/20 21:41 80 16 97 02/25/20 19:48 98.5 F 80 18 141/89 97 02/25/20 16:00 98.9 F 78 16 136/83 95 Home Medications Medication Instructions Recorded Confirmed Last Taken Type Albuterol 17 gm IH DAILY 02/24/20 02/24/20 Unknown History Fluticasone/Salmeterol [Advair 1 unit IH DAILY 02/24/20 02/24/20 Unknown History 100-50 Diskus] Meloxicam [Mobic] 15 mg PO HS 02/24/20 02/24/20 Unknown History Current Medications Generic Name Dose Route Start Last Admin Trade Name Freq PRN Reason Stop Dose Admin Albuterol Sulfate 2 puff 02/25/20 10:00 Ventolin Common Canister IH 03/26/20 09:59 DAILY LEODAN Sodium Chloride 1,000 mls @ 100 mls/hr 02/24/20 21:20 02/26/20 10:41 Sodium Chloride 0.9% 1000 Ml IV 03/25/20 21:19 100 mls/hr .Q10H LEODAN Administration Piperacillin Sod/Tazobactam 100 mls @ 200 mls/hr 02/25/20 12:00 02/26/20 10:37 Sod 3.375 gm/ Sodium Chloride IV 03/26/20 11:59 200 mls/hr Q6HT LEODAN Administration Ketorolac Tromethamine 30 mg 02/24/20 21:24 02/25/20 18:07 Toradol 30 Mg Injection IV 02/29/20 21:23 30 mg Q8HPRN PRN Administration PAIN Loratadine 10 mg 02/25/20 22:00 02/25/20 21:21 Claritin 10 Mg PO 03/26/20 21:59 10 mg HS LEODAN Administration Meloxicam 15 mg 02/25/20 22:00 02/25/20 21:22 Meloxicam PO 03/26/20 21:59 15 mg HS LEODAN Administration Morphine Sulfate 4 mg 02/24/20 21:20 Morphine Sulfate 4 Mg Inj IV 02/29/20 21:19 Q4H PRN PRN PAIN Ondansetron HCl 4 mg 02/24/20 21:20 Zofran 4 Mg/2 Ml Vial IV 03/25/20 21:19 Q6H PRN PRN NAUSEA/VOMITING Pantoprazole Sodium 20 mg 02/25/20 22:00 02/25/20 21:22 Protonix 20mg Tablet PO 03/26/20 21:59 20 mg HS LEODAN Administration Advair 45/21 Inhaler 2 each 02/25/20 19:00 02/26/20 07:25 IH 03/26/20 18:59 2 each BIDRT LEODAN Administration Discontinued Medications Generic Name Dose Route Start Last Admin Trade Name Freq PRN Reason Stop Dose Admin Sodium Chloride 1,000 mls @ 999 mls/hr 02/24/20 17:48 02/24/20 19:42 Sodium Chloride 0.9% 1000 Ml IV 02/24/20 18:48 Infused .Q1H1M STA Infusion Sodium Chloride Confirm 02/24/20 18:34 Sodium Chloride 0.9% 1000 Ml Administered 02/24/20 18:35 Dose 1,000 mls @ ud .ROUTE .STK-MED ONE Piperacillin Sod/Tazobactam 100 mls @ 200 mls/hr 02/24/20 20:35 02/24/20 20:46 Sod 3.375 gm/ Sodium Chloride IV 02/24/20 21:04 200 mls/hr STAT ONE Administration Sodium Chloride Confirm 02/24/20 20:39 Sodium Chloride 0.9% 100 Ml Ivpb Administered 02/24/20 20:40 Dose 100 mls @ ud IV .STK-MED ONE Ketorolac Tromethamine 30 mg 02/24/20 20:57 02/24/20 20:59 Toradol 30 Mg Injection IV 02/24/20 20:58 30 mg STAT ONE Administration Ketorolac Tromethamine Confirm 02/24/20 20:58 Toradol 30 Mg Injection Administered 02/24/20 20:59 Dose 30 mg .ROUTE .STK-MED ONE Loratadine Confirm 02/24/20 22:21 Claritin 10 Mg Administered 02/24/20 22:22 Dose 10 mg .ROUTE .STK-MED ONE Meloxicam Confirm 02/24/20 22:21 Meloxicam Administered 02/24/20 22:22 Dose 15 mg PO .STK-MED ONE Morphine Sulfate 4 mg 02/24/20 20:37 02/24/20 20:47 Morphine Sulfate 4 Mg Inj IV 02/24/20 20:38 4 mg STAT ONE Administration Morphine Sulfate Confirm 02/24/20 20:39 Morphine Sulfate 4 Mg Inj Administered 02/24/20 20:40 Dose 4 mg .ROUTE .STK-MED ONE Non-Formulary Medication 1 each 02/25/20 22:30 Non-Formulary Item PO 02/25/20 22:31 ONCE ONE Pantoprazole Sodium Confirm 02/24/20 22:21 Protonix 20mg Tablet Administered 02/24/20 22:22 Dose 20 mg PO .STK-MED ONE Piperacillin Sod/Tazobactam Sod Confirm 02/24/20 20:39 Zosyn 3.375 Gm Vial Administered 02/24/20 20:40 Dose 3.375 gm IV .STK-MED ONE Fluticasone/Salmeterol 2 puff 02/25/20 10:00 Advair Hfa 45/21 Common Canister* IH 03/26/20 09:59 DAILY LEODAN Fluticasone/Salmeterol 2 puff 02/25/20 19:56 Advair Hfa 45/21 Common Canister* 03/26/20 18:59 BIDRT LEODAN Intake & Output (Last 24 hours) 02/23/20 02/24/20 02/25/20 02/26/20 11:59 11:59 11:59 11:59 Intake Total 1070 5388 Output Total 450 4950 Balance 620 438 Weight 128.6 kg Laboratory Results (Last 24 hours) 02/26/20 02/26/20 05:15 05:15 WBC 7.2 RBC 4.57 Hgb 13.4 Hct 41.3 L MCV 90.4 MCH 29.3 MCHC 32.4 RDW 12.5 Plt Count 223 MPV 10.4 Sodium 139 Potassium 3.8 Chloride 109 H Carbon Dioxide 26 Anion Gap 8.5 BUN 7 L Creatinine 0.85 Estimated GFR > 60.0 Glucose 94 Calcium 9.0 Total Bilirubin 0.80 AST 21 ALT 20 Alkaline Phosphatase 54 Serum Total Protein 6.8 Albumin 3.7 Orders (Last 24 hours) Category Date Time Status Clear Liquid Diet 02/25/20 Dinner Active CBC AM.LAB Lab 02/26/20 05:15 Completed CMP AM.LAB Lab 02/26/20 05:15 Completed Fluticasone/Salmeterol [Advair Hfa 45/ Common Med 02/25/20 19:56 Discontinued Canister*] 2 puff IH BIDRT Loratadine 10 mg [Claritin 10 mg] Med 02/25/20 22:00 Active 10 mg PO HS Meloxicam Med 02/25/20 22:00 Active 15 mg PO HS Non-Formulary Drug [Non-Formulary Item] Med 02/25/20 22:30 Discontinued 1 each PO ONCE ONE Pantoprazole 20 mg [Protonix 20MG Tablet] Med 02/25/20 22:00 Active 20 mg PO HS Patient Own Med [Patient Own Medication] Med 02/25/20 19:00 Active 2 each IH BIDRT Piperacillin/Tazobactam 3.375G [Zosyn 3.375 GM Vial] 3. Med 02/25/20 12:00 Active 375 gm NaCl 0.9% 100 ml Mini-Bag Plus [Sodium Chloride 100ML MINI-BAG PLUS] 100 ml IV Q6HT Respiratory MDI BID RT 02/25/20 21:17 Active Patient Care Notes (Last 24 hours) 02/26/20 08:10 Nursing Note by Marge Noble ADDED PROTOCOL AIRBORNE ISOLATION ORDER DUE TO PATIENT EXPOSURE. Initialized on 02/26/20 08:10 - END OF NOTE Patient is doing much better, will advance diet to regular and if tolerate, D/C home, flagyl 500 mg po tid for 5 days - Vitals & Intake/Output Vital Signs: Vital Signs Temperature 97.8 F 02/26/20 08:00 Pulse Rate 59 L 02/26/20 08:00 Respiratory Rate 15 02/26/20 08:00 Blood Pressure 134/86 02/26/20 08:00 O2 Sat by Pulse Oximetry 97 02/26/20 08:00 Intake & Output: Intake & Output 02/23/20 02/24/20 02/25/20 02/26/20 11:59 11:59 11:59 11:59 Intake Total 1070 5388 Output Total 450 4950 Balance 620 438 Weight 128.6 kg - Lab Result Diagrams: 02/26/20 05:15 02/26/20 05:15 Lab Results-Last 24 Hrs: Lab Results-Last 24 Hours 02/26/20 02/26/20 Range/Units 05:15 05:15 WBC 7.2 (4.0-10.5) K/mm3 RBC 4.57 (4.1-5.6) M/mm3 Hgb 13.4 (12.5-18.0) gm/dl Hct 41.3 L (42-50) % MCV 90.4 (78-100) fl MCH 29.3 (26-32) pg MCHC 32.4 (32-36) g/dl RDW 12.5 (11.5-14.0) % Plt Count 223 (150-450) K/mm3 MPV 10.4 (7.5-11.0) fl Sodium 139 (137-145) mmol/L Potassium 3.8 (3.5-5.1) mmol/L Chloride 109 H (98-107) mmol/L Carbon Dioxide 26 (22-30) mmol/L Anion Gap 8.5 (5-15) MEQ/L BUN 7 L (9-20) mg/dL Creatinine 0.85 (0.66-1.25) mg/dL Estimated GFR > 60.0 ML/MIN Glucose 94 (74-106) mg/dL Calcium 9.0 (8.4-10.2) mg/dL Total Bilirubin 0.80 (0.2-1.3) mg/dL AST 21 (17-59) U/L ALT 20 (0-50) U/L Alkaline Phosphatase 54 (38-126) U/L Serum Total Protein 6.8 (6.3-8.2) g/dL Albumin 3.7 (3.5-5.0) g/dL - Radiology Exams Ordered Rad Exams-Entire Visit: Radiology Procedures Category Date Time Status ABDOMEN AND PELVIS W CONTRAST [CT] Stat Exams 02/24/20 17:49 Completed - Procedures and Test Procedures and Tests throughout Hospitalization: Therapy Orders & Screens 02/24/20 22:23 Respiratory Therapy Assessment DAILY Comment: Diagnosis: Diverticulosis 02/25/20 21:17 Respiratory MDI BID Comment: Diagnosis: Diverticulitis Discharge Exam General Appearance: no apparent distress, alert Neurologic Exam: alert, oriented x 3, cooperative, normal mood/affect, nml cerebellar function, sensation nml, No motor deficits Eye Exam: PERRL, EOMI, eyes nml inspection Ears, Nose, Throat Exam: normal ENT inspection, pharynx normal, moist mucous membranes Neck Exam: normal inspection, non-tender, supple, full range of motion Respiratory Exam: normal breath sounds, lungs clear, No respiratory distress Cardiovascular Exam: regular rate/rhythm, normal heart sounds Gastrointestinal/Abdomen Exam: soft, No tenderness, No mass Male Genitalia Exam: deferred Rectal Exam: deferred Back Exam: normal inspection, normal range of motion, No CVA tenderness, No vertebral tenderness Extremity Exam: normal inspection, normal range of motion Skin Exam: normal color, warm, dry Final Diagnosis/Problem List - Final Discharge Diagnosis/Problem (1) Diverticulitis Current Visit: Yes Status: Resolved Assessment & Plan: Chief Complaint Diagnosis Diverticulitis Admission Date Date 02/25/20 Allergies Allergy/AdvReac Type Severity Reaction Status Date / Time Shellfish *RETIRED-10/21/12 Allergy Intermediate Verified 09/16/16 16:22 [Shellfish] morphine AdvReac Intermediate Verified 02/24/20 20:53 Vital Signs (Last 24 hours) Temp Pulse Resp BP Pulse Ox 02/26/20 08:00 97.8 F 59 L 15 134/86 97 02/26/20 07:26 78 18 97 02/26/20 04:00 98.1 F 81 18 137/65 96 02/25/20 23:37 98.8 F 74 18 128/73 95 02/25/20 21:41 80 16 97 02/25/20 19:48 98.5 F 80 18 141/89 97 02/25/20 16:00 98.9 F 78 16 136/83 95 Home Medications Medication Instructions Recorded Confirmed Last Taken Type Albuterol 17 gm IH DAILY 02/24/20 02/24/20 Unknown History Fluticasone/Salmeterol [Advair 1 unit IH DAILY 02/24/20 02/24/20 Unknown History 100-50 Diskus] Meloxicam [Mobic] 15 mg PO HS 02/24/20 02/24/20 Unknown History Current Medications Generic Name Dose Route Start Last Admin Trade Name Freq PRN Reason Stop Dose Admin Albuterol Sulfate 2 puff 02/25/20 10:00 Ventolin Common Canister IH 03/26/20 09:59 DAILY LEODAN Sodium Chloride 1,000 mls @ 100 mls/hr 02/24/20 21:20 02/26/20 10:41 Sodium Chloride 0.9% 1000 Ml IV 03/25/20 21:19 100 mls/hr .Q10H LEODAN Administration Piperacillin Sod/Tazobactam 100 mls @ 200 mls/hr 02/25/20 12:00 02/26/20 10:37 Sod 3.375 gm/ Sodium Chloride IV 03/26/20 11:59 200 mls/hr Q6HT LEODAN Administration Ketorolac Tromethamine 30 mg 02/24/20 21:24 02/25/20 18:07 Toradol 30 Mg Injection IV 02/29/20 21:23 30 mg Q8HPRN PRN Administration PAIN Loratadine 10 mg 02/25/20 22:00 02/25/20 21:21 Claritin 10 Mg PO 03/26/20 21:59 10 mg HS LEODAN Administration Meloxicam 15 mg 02/25/20 22:00 02/25/20 21:22 Meloxicam PO 03/26/20 21:59 15 mg HS LEODAN Administration Morphine Sulfate 4 mg 02/24/20 21:20 Morphine Sulfate 4 Mg Inj IV 02/29/20 21:19 Q4H PRN PRN PAIN Ondansetron HCl 4 mg 02/24/20 21:20 Zofran 4 Mg/2 Ml Vial IV 03/25/20 21:19 Q6H PRN PRN NAUSEA/VOMITING Pantoprazole Sodium 20 mg 02/25/20 22:00 02/25/20 21:22 Protonix 20mg Tablet PO 03/26/20 21:59 20 mg HS LEODAN Administration Advair 45/21 Inhaler 2 each 02/25/20 19:00 02/26/20 07:25 IH 03/26/20 18:59 2 each BIDRT LEODAN Administration Discontinued Medications Generic Name Dose Route Start Last Admin Trade Name Freq PRN Reason Stop Dose Admin Sodium Chloride 1,000 mls @ 999 mls/hr 02/24/20 17:48 02/24/20 19:42 Sodium Chloride 0.9% 1000 Ml IV 02/24/20 18:48 Infused .Q1H1M STA Infusion Sodium Chloride Confirm 02/24/20 18:34 Sodium Chloride 0.9% 1000 Ml Administered 02/24/20 18:35 Dose 1,000 mls @ ud .ROUTE .STK-MED ONE Piperacillin Sod/Tazobactam 100 mls @ 200 mls/hr 02/24/20 20:35 02/24/20 20:46 Sod 3.375 gm/ Sodium Chloride IV 02/24/20 21:04 200 mls/hr STAT ONE Administration Sodium Chloride Confirm 02/24/20 20:39 Sodium Chloride 0.9% 100 Ml Ivpb Administered 02/24/20 20:40 Dose 100 mls @ ud IV .STK-MED ONE Ketorolac Tromethamine 30 mg 02/24/20 20:57 02/24/20 20:59 Toradol 30 Mg Injection IV 02/24/20 20:58 30 mg STAT ONE Administration Ketorolac Tromethamine Confirm 02/24/20 20:58 Toradol 30 Mg Injection Administered 02/24/20 20:59 Dose 30 mg .ROUTE .STK-MED ONE Loratadine Confirm 02/24/20 22:21 Claritin 10 Mg Administered 02/24/20 22:22 Dose 10 mg .ROUTE .STK-MED ONE Meloxicam Confirm 02/24/20 22:21 Meloxicam Administered 02/24/20 22:22 Dose 15 mg PO .STK-MED ONE Morphine Sulfate 4 mg 02/24/20 20:37 02/24/20 20:47 Morphine Sulfate 4 Mg Inj IV 02/24/20 20:38 4 mg STAT ONE Administration Morphine Sulfate Confirm 02/24/20 20:39 Morphine Sulfate 4 Mg Inj Administered 02/24/20 20:40 Dose 4 mg .ROUTE .STK-MED ONE Non-Formulary Medication 1 each 02/25/20 22:30 Non-Formulary Item PO 02/25/20 22:31 ONCE ONE Pantoprazole Sodium Confirm 02/24/20 22:21 Protonix 20mg Tablet Administered 02/24/20 22:22 Dose 20 mg PO .STK-MED ONE Piperacillin Sod/Tazobactam Sod Confirm 02/24/20 20:39 Zosyn 3.375 Gm Vial Administered 02/24/20 20:40 Dose 3.375 gm IV .STK-MED ONE Fluticasone/Salmeterol 2 puff 02/25/20 10:00 Advair Hfa 45/21 Common Canister* IH 03/26/20 09:59 DAILY LEODAN Fluticasone/Salmeterol 2 puff 02/25/20 19:56 Advair Hfa 45/21 Common Canister* IH 03/26/20 18:59 BIDRT LEODAN Intake & Output (Last 24 hours) 02/23/20 02/24/20 02/25/20 02/26/20 11:59 11:59 11:59 11:59 Intake Total 1070 5388 Output Total 450 4950 Balance 620 438 Weight 128.6 kg Laboratory Results (Last 24 hours) 02/26/20 02/26/20 05:15 05:15 WBC 7.2 RBC 4.57 Hgb 13.4 Hct 41.3 L MCV 90.4 MCH 29.3 MCHC 32.4 RDW 12.5 Plt Count 223 MPV 10.4 Sodium 139 Potassium 3.8 Chloride 109 H Carbon Dioxide 26 Anion Gap 8.5 BUN 7 L Creatinine 0.85 Estimated GFR > 60.0 Glucose 94 Calcium 9.0 Total Bilirubin 0.80 AST 21 ALT 20 Alkaline Phosphatase 54 Serum Total Protein 6.8 Albumin 3.7 Orders (Last 24 hours) Category Date Time Status Clear Liquid Diet 02/25/20 Dinner Active CBC AM.LAB Lab 02/26/20 05:15 Completed CMP AM.LAB Lab 02/26/20 05:15 Completed Fluticasone/Salmeterol [Advair Hfa 45/ Common Med 02/25/20 19:56 Discontinued Canister*] 2 puff IH BIDRT Loratadine 10 mg [Claritin 10 mg] Med 02/25/20 22:00 Active 10 mg PO HS Meloxicam Med 02/25/20 22:00 Active 15 mg PO HS Non-Formulary Drug [Non-Formulary Item] Med 02/25/20 22:30 Discontinued 1 each PO ONCE ONE Pantoprazole 20 mg [Protonix 20MG Tablet] Med 02/25/20 22:00 Active 20 mg PO HS Patient Own Med [Patient Own Medication] Med 02/25/20 19:00 Active 2 each IH BIDRT Piperacillin/Tazobactam 3.375G [Zosyn 3.375 GM Vial] 3. Med 02/25/20 12:00 Active 375 gm NaCl 0.9% 100 ml Mini-Bag Plus [Sodium Chloride 100ML MINI-BAG PLUS] 100 ml IV Q6HT Respiratory MDI BID RT 02/25/20 21:17 Active Patient Care Notes (Last 24 hours) 02/26/20 08:10 Nursing Note by Marge Noble ADDED PROTOCOL AIRBORNE ISOLATION ORDER DUE TO PATIENT EXPOSURE. Initialized on 02/26/20 08:10 - END OF NOTE d/c home with flagyl 500 mg po tid for 7 days Code(s): K57.92 - DVTRCLI OF INTEST, PART UNSP, W/O PERF OR ABSCESS W/O BLEED - Discharge Discharge Date: 02/26/20 Disposition: Home, Self-Care Condition: Stable Prescriptions: New Metronidazole 500 mg [Flagyl 500 MG] 500 mg PO TID #21 tablet Continue Loratadine [Claritin] 10 mg PO HS Esomeprazole Magnesium [Nexium] 20 mg PO HS Meloxicam [Mobic] 15 mg PO HS Fluticasone/Salmeterol [Advair 100-50 Diskus] 1 unit IH DAILY Albuterol 17 gm IH DAILY Follow up with: RAFFAELE LEAVITT, [employer]NA[employer] [Primary Care Provider] - 5 Days
[2020-02-26 16:04] VITALS: BP 140/93; PULSE 86; O2SAT 98
== END 2020-02-26 15:34 | disposition home or self-care (01) ==
LOC: ED 17:08 → MED SURG 21:14
PROVIDERS: ADMIT Family Medicine; ATTEND Family Medicine
DX: K57.32 Diverticulitis of large intestine without perforation or abscess without bleeding (principal); Z79.899 Other long term (current) drug therapy
CPT/HCPCS: 36000; 36415; 74177; 80053; 83690; 85025; 85027; 93005; 94640; 94760; 96360; 96365; 96374; 96375; 99285; G0378; J1885; J2270; A9270-GY

== ENCOUNTER 2020-07-06 00:28 | Emergency (ER) | payer BC ==
[2020-07-06] MEDS ORDERED: TORAdol 30 mg Injection IM ONE (00:59)
[2020-07-06] MEDS ORDERED: Augmentin 875-125 Tablet PO ONE (01:00)
[2020-07-06 01:03] VITALS: O2SAT 98
[2020-07-06] MEDS ORDERED: TORAdol 30 mg Injection ONE (01:05)
[2020-07-06] MEDS ORDERED: Augmentin 875-125 Tablet ONE (01:05)
--- NOTE | 2020-07-06 01:06 | ERPHSYRPT ---
- History of Present Illness Time Seen by Provider: 07/06/20 00:54 Source: patient Exam Limitations: no limitations Physician History: 45 years old male presented in the ER with chief complaint of right nasal septum distal area of swelling and redness for the last 2 days with progressively worsening pain. Patient report throbbing pain in the upper jaw, maxillary and frontal sinus area moderate intensity which is aggravated with palpation. Is full nasal septum feels like it is sore. Timing/Duration: days (2) Severity: moderate ENT Location: nose Prearrival Treatment: over the counter meds Associated Symptoms: facial pain/swelling, headache, jaw pain, nasal congestion/drainage, tooth pain Allergies/Adverse Reactions: Shellfish *RETIRED-10/21/12 [Shellfish] Allergy (Intermediate, Verified 03/29/20 12:29) morphine Adverse Reaction (Intermediate, Verified 03/29/20 12:29) Trouble waking up Home Medications: Fluticasone/Salmeterol [Advair 100-50 Diskus] 1 unit IH BID 02/24/20 [History] Albuterol Sulfate [Proventil Hfa] 6.7 gm IH DAILY PRN PRN 03/29/20 [History] Hx Tetanus, Diphtheria Vaccination/Date Given: Yes Hx Influenza Vaccination/Date Given: No Hx Pneumococcal Vaccination/Date Given: No - Review of Systems Constitutional: No Symptoms Eyes: No Symptoms Ears, Nose, & Throat: Nose Congestion Respiratory: No Symptoms Cardiac: No Symptoms Abdominal/Gastrointestinal: No Symptoms Musculoskeletal: No Symptoms Skin: No Symptoms Neurological: No Symptoms Psychological: No Symptoms - Past Medical History Pertinent Past Medical History: Yes Neurological History: No Pertinent History ENT History: No Pertinent History Cardiac History: No Pertinent History Respiratory History: Asthma Endocrine Medical History: No Pertinent History Musculoskeletal History: No Pertinent History GI Medical History: GERD History: No Pertinent History Psycho-Social History: No Pertinent History Male Reproductive Disorders: No Pertinent History - Past Surgical History Past Surgical History: No Neuro Surgical History: No Pertinent History Cardiac: No Pertinent History Respiratory: No Pertinent History Gastrointestinal: No Pertinent History Genitourinary: No Pertinent History Musculoskeletal: No Pertinent History Male Surgical History: No Pertinent History - Social History Smoking Status: Former smoker Exposure to second hand smoke: No Drug Use: none Patient Lives Alone: No - Physical Exam General Appearance: no apparent distress, alert Eye Exam: bilateral eye: normal inspection, PERRL, EOMI Ear Exam: bilateral ear: auricle normal, canal normal, TM normal Nasal Exam: sinus tenderness (Right distal nasal septal area skin redness with some swelling, tenderness. Negative fluctuation.) Neck Exam: normal inspection, non-tender Cardiovascular/Respiratory Exam: chest non-tender, normal breath sounds, regular rate/rhythm Neurologic Exam: alert, oriented x 3, cooperative, observer gravity prospecting II-XII nml as tested, normal mood/affect Skin Exam: normal color SpO2 Interpretation: normal O2 Delivery: Room Air - Progress Progress: unchanged Progress Note: 07/06/20 01:07 Has developing infection in the nasal septal area. he is given Toradol for symptomatic relief and started on Augmentin. Recommended outpatient follow-up. Counseled pt/family regarding: diagnosis, need for follow-up - Departure Departure Disposition: Home Clinical Impression: Infection of nose Condition: Stable Critical Care Time: No Referrals: RAFFAELE LEAVITT, SCIENTIFIC EDITOR [Primary Care Provider] - Follow Up with PCP/3 days Instructions: MRSA (DC) Additional Instructions: Take Tylenol/ibuprofen as needed for pain. Follow-up with primary care for reevaluation. Return to ER for worsening pain swelling or if have worsening headache, dizzy lightheaded etc. Prescriptions: Amox Tr/Potass Clav. 875 mg [Augmentin 875-125 Tablet] 875 mg PO BID #14 tablet
[2020-07-06 01:58] VITALS: BP 121/84; PULSE 87
== END 2020-07-06 01:31 | disposition home or self-care (01) ==
LOC: ED 00:28
DX: J32.9 Chronic sinusitis, unspecified (principal); R51.9 Headache, unspecified; R09.81 Nasal congestion
CPT/HCPCS: 96372; 99283; J1885; A9270-GY